=== PATIENT | female | born 1930 | race Caucasian/White ===

== ENCOUNTER 2017-02-01 13:07 | Day surgery (SDC) | payer OTHER ==
[~2017-02-01 13:07] MED LIST: ASPI81TA45 PO; ATEN-102 PO; CHOL1CAP6 PO; ENAL5TAB PO; FLON0.053; HYDR-3580 PO; LEVO50TA4 PO; NIFE30TA2 PO; TEMA15 PO; TIMO0.5S29 EACH EYE; VITATAB25 PO
[2017-02-01 14:21] VITALS: BP 175/85; PULSE 68; RESP 19; TEMP 98.4; O2SAT 98
[2017-02-01 14:36] VITALS: BP 168/79; PULSE 70; RESP 17; O2SAT 97
--- NOTE | 2017-02-01 15:55 | RADRPT ---
EXAM DATE/TIME: 02/01/2017 13:43 [place] COMPARISON: US GUIDED NEEDLE BIOPSY, April 10, 2014, 14:15. INDICATIONS : Left thyroid nodule. MEDICAL HISTORY : Hypothyroidism. Hypertension. Renal calculi. Tongue cancer. SURGICAL HISTORY : Hysterectomy. Appendectomy. Chemotherapy. Radiation therapy. Bilateral cataract surgery. Uterine raven pension. Cardiac cath. ENCOUNTER: Initial ACUITY: 1 day PAIN SCORE: 2/10 LOCATION: Left neck ORGAN: Left thyroid lobe SPECIMENS: Three fine needle aspirate(s) submitted for pathologic evaluation. DEVICE: 22 gauge needle Post procedure scanning reveals no hematoma or other complication. The possibility does exist that the tissue obtained will be non-diagnostic. If the sample is non-enoc gnostic a repeat biopsy or surgical biopsy may need to be performed. TECHNIQUE: 1. Ultrasound guidance for needle biopsy. 2. Needle biopsy. The risks, benefits, and alternatives to ultrasound guided needle biopsy were explained to the patien t in detail including the risk of bleeding and infection. Written and verbal informed consent was ob tained. With the patient on the ultrasound table, images were obtained. Overlying skin was prepped and drape d in the usual sterile fashion and Lidocaine was utilized as a local anesthetic. A needle was advanced into the identified target and the number of specimens as above obtained and mendez bmitted for pathologic evaluation. The patient tolerated the procedure well and left the ultrasound suite in stable condition. CONCLUSION: Uncomplicated ultrasound guided needle biopsy. Gal Mayers MD on February 01, 2017 at 15:53 Board Certified Radiologist. This report was verified electronically.
[2017-02-01] MEDS ORDERED: LIDOCAINE HCL 1% PF 30 ML VIAL ONE (17:09)
[2017-02-01] MEDS ORDERED: SODIUM BICARBONATE 8.4% INJ 50 ML ONE (17:10)
== END 2017-02-01 14:40 | disposition home or self-care (01) ==
LOC: HRAD 13:07 → HRIP 13:08 → HRAD 14:40
PROVIDERS: ATTEND Internal Medicine Hematology & Oncology
DX: E04.1 Nontoxic single thyroid nodule (principal); E03.9 Hypothyroidism, unspecified; I10 Essential (primary) hypertension; Z87.442 Personal history of urinary calculi; Z85.810 Personal history of malignant neoplasm of tongue; Z92.21 Personal history of antineoplastic chemotherapy; Z92.3 Personal history of irradiation
CPT/HCPCS: 10022; 76942; 88172; 88173